=== PATIENT | female | born 1980 | race Caucasian/White ===

== ENCOUNTER 2018-04-09 12:12 | Emergency (ER) | payer SELFPAY ==
[2018-04-09 14:10] LABS: Absolute Lymphocytes (CBC) 2.1 K/uL (0.7-4.9); Absolute Monocytes 0.6 K/uL (0.1-1.3); Basophils % 0.3 % (0-1.3); Eosinophils % 0.1 % (0-4.4); Hematocrit 38.9 % (36.0-45.0); Lymphocytes % 21.3 % (15.3-44.8); MPV 9.2 fL (7.6-11.3); Monocytes % 6.3 % (3.3-12.3); RBC Red Blood Cell Count 4.36 M/uL (3.86-4.86)
[2018-04-09] MEDS ORDERED: MORPHINE 4 MG/ML SYR ONE (14:11)
[2018-04-09] MEDS ORDERED: ONDANSETRON 4 MG/2 ML VIAL ONE (14:11)
[2018-04-09 14:18] LABS: Protime INR 1.09
[2018-04-09 14:36] LABS: ALT/SGPT 23 U/L (12-78); AST/SGOT 25 U/L (15-37); Albumin 4.2 g/dL (3.4-5.0); Alkaline Phosphatase 61 U/L (45-117); BUN Blood Urea Nitrogen 12 mg/dL (7-18); Bicarbonate 26 mmol/L (21-32); Bilirubin Direct 0.1 mg/dL (0-0.2); Bilirubin Total 0.3 mg/dL (0.2-1.0); Glucose Level 84 mg/dL (74-106); Magnesium 2.1 mg/dL (1.8-2.4); NT PRO-BNP 44 pg/mL (<125); Potassium 3.8 mmol/L (3.5-5.1); Protein, Total 8.1 g/dL (6.4-8.2); Sodium Level 139 mmol/L (136-145); Troponin (Emerg Dept Use Only) < 0.02 ng/mL (0.0-0.045)
--- NOTE | 2018-04-09 14:37 | RAD REPORT ---
EXAM DESCRIPTION: RAD - Chest Single View - 04/09/2018 2:31 pm CLINICAL HISTORY: Chest pain COMPARISON: None. TECHNIQUE: AP portable chest image was obtained 1429 hours . FINDINGS: Lungs are clear. Heart and vasculature are normal. No measurable pleural effusion and no p neumothorax. No acute bony abnormality seen. No acute aortic findings suspected. Bilateral nipple sha dows are present. IMPRESSION: No acute cardiopulmonary process.
--- NOTE | 2018-04-09 16:05 | RAD REPORT ---
EXAM DESCRIPTION: CT - Chest For Pe Angio - 04/09/2018 3:41 pm CLINICAL HISTORY: Chest pain COMPARISON: None. TECHNIQUE: Dynamically enhanced axial 3 mm thick images of the chest were obtained during administra tion of <100> mL Isovue 370 IV contrast. Coronal and oblique reconstruction images were generated and reviewed. Exam utilizes a protocol for optimal evaluation of pulmonary arterial tree. Maximum intensity projections 3D imaging was utilized All CT scans are performed using dose optimization technique as appropriate and may include automated exposure control or mA/KV adjustment according to patient size. FINDINGS: A pulmonary embolus is not seen. A thoracic aortic aneurysm is not noted. A pleural effusion is not seen. A pericardial effusion is not seen. A lung consolidation is not present. Minimal tree-in-bud opacities left lower lobe. Small left blebs are present. IMPRESSION: Negative for a pulmonary embolism.
[2018-04-09 16:06] LABS: Urine Blood NEGATIVE (NEG); Urine Glucose NEGATIVE (NEG); Urine Protein NEGATIVE (NEG); Urine pH 6.5 (5.0-7.0)
--- NOTE | 2018-04-09 16:12 | RAD REPORT ---
EXAM DESCRIPTION: CT - Abdomen Pelvis W Contrast - 04/09/2018 3:41 pm CLINICAL HISTORY: Abdominal pain COMPARISON: 2012 TECHNIQUE: Computed axial tomography of the abdomen pelvis was obtained. 100 cc Isovue-300 was admin istered intravenously. Oral contrast was not requested which limits evaluation of bowel. All CT scans are performed using dose optimization technique as appropriate and may include automated exposure control or mA/KV adjustment according to patient size. FINDINGS: The liver, spleen, pancreas, adrenal and kidneys appear unremarkable. There is no evidence of diverticulitis. An adnexal mass is not seen A moderate amount of stool is present throughout colon IMPRESSION: No acute abnormality is displayed.
--- NOTE | 2018-04-09 16:40 | ER ---
Nurse's Notes [facility] Name: Gloria Best Age: 37 yrs Sex: Female : 1980 Arrival Date: 04/09/2018 Time: 12:15 Bed 6 Private MD: None, None Diagnosis: Other chest pain;Abdominal and pelvic pain Presentation: 04/09 12:18 Presenting complaint: Patient states: i feel lightheaded, nausea, and having chest tw2 pain, it started again last night at work, i was lifting something when it started and having chest pain off and on for a couple of months. Transition of care: patient was not received from another setting of care. Onset of symptoms was April 09, 2018. Risk Assessment: Do you want to hurt yourself or someone else? Patient reports no desire to harm self or others. Initial Sepsis Screen: Does the patient meet any 2 criteria? No. Patient's initial sepsis screen is negative. Does the patient have a suspected source of infection? No. Patient's initial sepsis screen is negative. Care prior to arrival: None. 12:18 Method Of Arrival: Ambulatory tw2 12:18 Acuity: CROW 3 tw2 Triage Assessment: 12:20 General: Appears slender, Behavior is anxious. Pain: Complains of pain in chest. Neuro: tw2 Reports headache lightheadedness. Cardiovascular: Reports chest pain, shortness of breath. 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 - Social history:: Smoking status: Patient uses tobacco products, smokes one pack cigarettes per day. - Ebola Screening: : Patient denies travel to an Ebola-affected area in the 21 days before illness onset. Screenin:40 Abuse screen: Denies threats or abuse. Denies injuries from another. Nutritional sg screening: No deficits noted. Tuberculosis screening: No symptoms or risk factors identified. Never had TB. Fall Risk None identified. Assessment: 13:44 General: Appears in no apparent distress. uncomfortable, slender, well groomed, well sg developed, well nourished, Behavior is calm, cooperative, appropriate for age. Neuro: Level of Consciousness is awake, alert, obeys commands, Oriented to person, place, time, situation, Marine Mechanic are equal bilaterally Moves all extremities. Full function Gait is steady, Speech is normal, Facial symmetry appears normal. Cardiovascular: Heart tones S1 S2 present Capillary refill is brisk in bilateral fingers Patient's skin is warm and dry. Chest pain is denied. Respiratory: Airway is patent Respiratory effort is even, unlabored, Respiratory pattern is regular, symmetrical, Breath sounds are clear. GI: Abdomen is flat, non-distended. : No signs and/or symptoms were reported regarding the genitourinary system. EENT: No signs and/or symptoms were reported regarding the EENT system. Derm: Skin is pink, warm \T\ dry. Musculoskeletal: No signs and/or symptoms reported regarding the musculoskeletal system. 15:00 Reassessment: Patient appears in no apparent distress at this time. Patient and/or ph family updated on plan of care and expected duration. Pain level reassessed. Patient is alert, oriented x 3, equal unlabored respirations, skin warm/dry/pink. 16:30 Reassessment: Patient appears in no apparent distress at this time. Patient and/or ph family updated on plan of care and expected duration. Pain level reassessed. Patient is alert, oriented x 3, equal unlabored respirations, skin warm/dry/pink. Vital Signs: 12:20 BP 145 / 101; Pulse 88; Resp 18; Temp 98.3(TE); Pulse Ox 100% on R/A; Weight 40.82 kg tw2 (R); Height 4 ft. 11 in. (149.86 cm); Pain 7/10; 14:00 BP 141 / 93; Pulse 72; Resp 18; Pulse Ox 99% on R/A; Pain 7/10; ph 15:00 BP 116 / 80; Pulse 66; Resp 16; Pulse Ox 98% on R/A; ph 16:00 BP 145 / 88; Pulse 75; Resp 16; Pulse Ox 100% on R/A; ph 17:00 BP 140 / 76; Pulse 76; Resp 16; Pulse Ox 100% on R/A; ph 18:02 BP 140 / 70; Pulse 78; Resp 16; Pulse Ox 99% on R/A; ph 12:20 Body Mass Index 18.18 (40.82 kg, 149.86 cm) tw2 ED Course: 12:15 Patient arrived in ED. sb2 12:16 None, None is Private Physician. sb2 12:19 Triage completed. tw2 12:19 Arm band placed on. EKG completed in triage. Results shown to MD. tw2 13:27 Mega Thompson PA is PHCP. [facility] 13:27 Man Thomas MD is Attending Physician. [facility] 13:42 Initial lab(s) drawn, by me. Missed attempt(s): 22 gauge in left antecubital area. sg Bleeding controlled, band aid applied, catheter tip intact. 14:01 Inserted saline lock: 22 gauge in right hand, using aseptic technique. dh3 14:24 Cyndi Lovett, RN is Primary Nurse. ph 14:29 XRAY Chest (1 view) In Process Unspecified. EDMS 15:30 Patient has correct armband on for positive identification. Placed in gown. Bed in low ph position. Call light in reach. Side rails up X 1. vehicle monitor technician on. Pulse ox on. NIBP on. Door closed. Noise minimized. Lights dimmed. Warm blanket given. 15:30 Inserted saline lock: 20 gauge in left antecubital area, using aseptic technique. dh3 15:30 Patient maintains SpO2 saturation greater than 95% on room air. ph 15:34 Urine collected: clean catch specimen, clear. dh3 15:40 CT completed. Patient tolerated procedure well. Patient moved back from CT. nj 15:44 Chest For PE Angio CT In Process Unspecified. EDMS 15:44 CT Abd/Pelvis - W/Contrast In Process Unspecified. EDMS 18:00 No provider procedures requiring assistance completed. IV discontinued, intact, ph bleeding controlled, No redness/swelling at site. Pressure dressing applied. Administered Medications: 14:24 Drug: morphine 4 mg Route: IVP; Site: right hand; ph 18:01 Follow up: Response: No adverse reaction ph 14:25 Drug: Zofran 4 mg Route: IVP; Site: right hand; ph 18:01 Follow up: Response: No adverse reaction ph Outcome: 16:40 Discharge ordered by . [facility] 18:00 Discharged to home ambulatory, with significant other. ph 18:00 Condition: good 18:00 Discharge instructions given to patient, Instructed on discharge instructions, follow up and referral plans. medication usage, Demonstrated understanding of instructions, follow-up care, medications, Prescriptions given X 1. 18:05 Patient left the ED. ph Signatures: Dispatcher [employer] EDMS Daljit Jung, RN RN Mega Leiva PA PA jmm Hall, Patricia, RN RN Delmy Perez RN RN [facility] Horacio Herndon Deanna formerly [facility] Chandrika Leiva [place]
--- NOTE | 2018-04-09 16:41 | EDPHYS ---
Physician Documentation [facility] Name: Gloria Best Age: 37 yrs Sex: Female : 1980 Arrival Date: 04/09/2018 Time: 12:15 Bed 6 Private MD: None, None ED Physician Man Thomas HPI: 04/09 13:37 This 37 yrs old Female presents to ER via Ambulatory with complaints of Chest jmm Pain, Abdominal Pain, Pelvic Pain. 13:37 The patient or guardian reports chest pain that is located primarily in the substernal jmm area. The pain does not radiate. Associated signs and symptoms: Pertinent positives: abdominal pain. The chest pain is described as aching, sharp. Duration: The patient or guardian reports multiple episodes, that wax and wane. This is a 37 year old female with no known chronic medical conditions that presents to the ED with complaints of left sided chest pain. Symptoms have been ongoing for multiple months. Patient also complains of chronic pelvic pain with heavy cycles. Patient smokes tobacco, denies recreational drug use. . 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 - Social history:: Smoking status: Patient uses tobacco products, smokes one pack cigarettes per day. - Ebola Screening: : Patient denies travel to an Ebola-affected area in the 21 days before illness onset. ROS: 13:37 Constitutional: Negative for fever, chills, and weight loss. jmm 13:37 Cardiovascular: Positive for chest pain. 13:37 : Positive for pelvic pain. 13:37 All other systems are negative. Exam: 13:37 Constitutional: This is a well developed, well nourished patient who is awake, alert, jmm and in no acute distress. Head/Face: atraumatic. Eyes: EOMI, no conjunctival erythema appreciated ENT: Moist Mucus Membranes Neck: Trachea midline, Supple Chest/axilla: Normal chest wall appearance and motion. 13:37 Cardiovascular: Rate: normal, Rhythm: regular, Pulses: no pulse deficits are appreciated. 13:37 Respiratory: the patient does not display signs of respiratory distress, Respirations: normal, Breath sounds: are clear throughout. 13:37 Abdomen/GI: Inspection: abdomen appears normal, Bowel sounds: normal, Palpation: abdomen is soft and non-tender, in all quadrants. 13:37 Musculoskeletal/extremity: ROM: intact in all extremities. 13:37 Skin: Appearance: Color: normal in color. 13:37 Neuro: Orientation: is normal, Mentation: is normal, Memory: is normal, Gait: is steady. 13:37 Psych: Behavior/mood is pleasant, cooperative. Vital Signs: 12:20 BP 145 / 101; Pulse 88; Resp 18; Temp 98.3(TE); Pulse Ox 100% on R/A; Weight 40.82 kg tw2 (R); Height 4 ft. 11 in. (149.86 cm); Pain 7/10; 14:00 BP 141 / 93; Pulse 72; Resp 18; Pulse Ox 99% on R/A; Pain 7/10; ph 15:00 BP 116 / 80; Pulse 66; Resp 16; Pulse Ox 98% on R/A; ph 16:00 BP 145 / 88; Pulse 75; Resp 16; Pulse Ox 100% on R/A; ph 17:00 BP 140 / 76; Pulse 76; Resp 16; Pulse Ox 100% on R/A; ph 18:02 BP 140 / 70; Pulse 78; Resp 16; Pulse Ox 99% on R/A; ph 12:20 Body Mass Index 18.18 (40.82 kg, 149.86 cm) tw2 MDM: 13:37 Patient medically screened. [facility] 16:39 VAZQUEZ Risk Score: TOTAL SCORE = 0. Data reviewed: vital signs, nurses notes, lab test [facility] result(s), EKG, radiologic studies. Data interpreted: Pulse oximetry: on room air is 100 %. Interpretation: normal. Test interpretation: by ED physician or midlevel provider: ECG. Counseling: I had a detailed discussion with the patient and/or guardian regarding: the historical points, exam findings, and any diagnostic results supporting the discharge/admit diagnosis, radiology results, the need for outpatient follow up, to return to the emergency department if symptoms worsen or persist or if there are any questions or concerns that arise at home. 16:39 ED course: HEART SCORE 1. Patient is advised to follow up with PCP and is otherwise [facility] given strict return precaution. . 04/09 13:45 Order name: Basic Metabolic Panel; Complete Time: 15:03 [facility] 04/09 13:45 Order name: CBC with Diff; Complete Time: 14:22 [facility] 04/09 13:45 Order name: LFT's; Complete Time: 15:03 [facility] 04/09 13:45 Order name: Magnesium; Complete Time: 15:03 [facility] 04/09 13:45 Order name: NT PRO-BNP; Complete Time: 15:03 [facility] 04/09 13:45 Order name: PT-INR; Complete Time: 15:03 [facility] 04/09 13:45 Order name: Troponin (emerg Dept Use Only); Complete Time: 15:03 [facility] 04/09 13:45 Order name: XRAY Chest (1 view); Complete Time: 15:03 [facility] 04/09 15:04 Order name: Chest For PE Angio CT; Complete Time: 16:18 [facility] 04/09 15:04 Order name: CT Abd/Pelvis - W/Contrast; Complete Time: 16:18 [facility] 04/09 15:39 Order name: Urine Dipstick--Ancillary (enter results); Complete Time: 16:18 [facility] 04/09 15:39 Order name: Urine --Ancillary (enter results); Complete Time: 16:18 em04/09 13:45 Order name: EKG; Complete Time: 13:52 [facility] 04/09 13:45 Order name: Cardiac monitoring; Complete Time: 13:47 [facility] 04/09 13:45 Order name: EKG - Nurse/Tech; Complete Time: 13:47 [facility] 04/09 13:45 Order name: IV Saline Lock; Complete Time: 13:47 [facility] 04/09 13:45 Order name: Labs collected and sent; Complete Time: 13:47 [facility] 04/09 13:45 Order name: O2 Per Protocol; Complete Time: 13:47 [facility] 04/09 13:45 Order name: O2 Sat Monitoring; Complete Time: 13:47 [facility] 04/09 15:39 Order name: Urine Dipstick-Ancillary (obtain specimen); Complete Time: 15:39 em1 04/09 15:39 Order name: Urine Test (obtain specimen); Complete Time: 15:39 em1 Administered Medications: 14:24 Drug: morphine 4 mg Route: IVP; Site: right hand; ph 18:01 Follow up: Response: No adverse reaction ph 14:25 Drug: Zofran 4 mg Route: IVP; Site: right hand; ph 18:01 Follow up: Response: No adverse reaction ph Disposition: 04/10 07:08 Co-signature as Attending Physician, Man Thomas MD I agree with the assessment and kdr plan of care. Disposition: 04/09/18 16:40 Discharged to Home. Impression: Other chest pain, Abdominal and pelvic pain. - Condition is Stable. - Discharge Instructions: Nonspecific Chest Pain, Pelvic Pain, Female. - Prescriptions for Motrin IB 200 mg Oral Tablet - take 1 tablet by ORAL route every 6 hours As needed as needed with food; 40 tablet. - Medication Reconciliation Form, Thank You Letter, Antibiotic Education, Prescription Opioid Use, Work release form, Family Work Release form. - Follow up: Private Physician; When: 1 - 2 days; Reason: Recheck today's complaints, Continuance of care, Re-evaluation by your physician. Signatures: Dispatcher [employer] EDMan Cespedes MD MD kdr Mega Thompson PA PA jmm Martinez, Eric em1 Cyndi Lovett RN RN ph Delmy Perez RN RN tw2 Corrections: (The following items were deleted from the chart) 04/09 18:05 16:40 04/09/2018 16:40 Discharged to Home. Impression: Other chest pain; Abdominal and ph pelvic pain. Condition is Stable. Forms are Medication Reconciliation Form, Thank You Letter, Antibiotic Education, Prescription Opioid Use. Follow up: Private Physician; When: 1 - 2 days; Reason: Recheck today's complaints, Continuance of care, Re-evaluation by your physician. [place]
--- NOTE | 2018-04-09 16:58 | EKG ---
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
[2018-04-09 18:55] VITALS: TEMP 98.3
[2018-04-09 19:02] VITALS: BP 140/70; O2SAT 99
== END 2018-04-09 18:05 | disposition home or self-care (01) ==
LOC: ER 12:12
DX: R10.2 Pelvic and perineal pain (principal); F17.210 Nicotine dependence, cigarettes, uncomplicated; Z72.0 Tobacco use
CPT/HCPCS: 36415; 71045; 71275; 74177; 80048; 80076; 81003; 81025; 83735; 83880; 84484; 85025; 85610; 93005; 96374; 96375; 99285; J2405; Q9967